=== PATIENT | female | born 1995 | race Hispanic/Latino ===

== ENCOUNTER 2020-04-12 16:28 | Observation (INO) | payer OTHER, SELFPAY ==
--- NOTE | ~2020-04-12 | CT_ITS ---
EXAMINATION: CT abdomen pelvis w con DATE: 04/12/2020 17:43 INDICATION: Right lower quadrant pain. TECHNIQUE: Computed tomography (CT) of the abdomen and pelvis was performed with 100 cc Omnipaque 350 intravenous contrast. The dose-length product was 1049.62 mGy-cm. Automated exposure control and ite rative reconstruction technique were employed. COMPARISON: CT dated 07/06/2016 FINDINGS: Lung bases are unremarkable. Heart size normal. No significant pleural or pericardial effus ion. No significant vascular abnormality. No lymphadenopathy. There is loculated fluid in the right p ariel superior to the uterus measuring 8 x 5.2 cm. Cannot exclude ovarian origin. The appendix is thi ckened with enhancement and mild periappendiceal infiltration, consistent with acute uncomplicated ap pendicitis. IMPRESSION: 1. Acute uncomplicated appendicitis. 2: Simple cyst of the pelvis superior to the uterus measuring 8 x 5.2 cm greatest sagittal dimension. Differential diagnosis functional ovarian cyst, peritoneal inclusion cyst, cystadenoma/cystadenocarc inoma. Reviewed, dictated and finalized at location A. IMPRESSION: 1. Acute uncomplicated appendicitis. 2: Simple cyst of the pelvis superior to the uterus measuring 8 x 5.[address] sagittal dimension. Differential diagnosis functional ovarian cyst, peritone al inclusion cyst, cystadenoma/cystadenocarcinoma.
[2020-04-12 16:30] VITALS: BP 173/109; PULSE 98; RESP 17; TEMP 37.3; O2SAT 98
[2020-04-12 16:58] LABS: Basophils Percent Auto 0.3 % (0.2-1.2); Eosinophils Absolute Auto 0.1 K/mm3 (0-0.3); Eosinophils Percent Auto 1.3 % (0-4.4); Hematocrit 41.8 % (37.0-47.0); Hemoglobin 14.6 g/dL (12.0-15.0); Immature Granulocyte Absolute 0.04 K/mm3 (0.00-0.031); Immature Granulocyte Percent A 0.4 % (0-0.5); Lymphocytes Absolute Auto 3.15 K/mm3 (0.9-3.2); Lymphocytes Percent Auto 33.8 % (18.3-44.2); Mean Corpuscular HGB Conc 34.9 g/dl (32-36); Mean Corpuscular Hemoglobin 31.6 pg (26-34); Mean Corpuscular Volume 90.5 fl (80-100); Mean Platelet Volume 9.5 fl (7.4-10.4); Monocytes Absolute Auto 0.4 K/mm3 (0.1-0.6); Monocytes Percent Auto 4.4 % (2.6-8.5); Neutrophils Absolute Auto 5.6 K/mm3 (1.3-6.7); Neutrophils Percent Auto 59.8 % (45.5-73.1); Platelet Count Result 316 k/mm3 (150-375); Red Blood Count 4.62 M/mm3 (4.2-5.4); Red Cell Distribution Width 12.4 % (11.5-14.5); White Blood Count 9.3 K/mm3 (4.5-10.0)
[2020-04-12 17:01] LABS: Add Urine Microscopic? YES; Appearance Urine Clear (Clear); Bilirubin Urine Negative (Negative); Blood Urine Negative (Negative); Color Urine Yellow (Yellow); Glucose Urine UA Negative (Negative); Ketones Urine Negative (Negative); Leukocyte Esterase Ur Negative LEU/UL (Negative); Mucus Urine Few /lpf; Nitrate Urine Negative (Negative); Protein Urine Negative (Negative); RBC Urine 0-2 /hpf (0-2); Specific Grav Ur 1.024 (1.001-1.035); Squamous Epithelial Cell Urine Few /hpf (Few); WBC Urine 0-3 /hpf
--- NOTE | 2020-04-12 17:06 | ED.ABDPAIN ---
HPI - Abdominal Pain General Chief Complaint: Abdominal Pain Stated Complaint: right sided abd pain Time Seen by Provider: 04/12/20 16:38 History of Present Illness HPI narrative: Patient is a 24-year-old female who presents ER with right lower quadrant pain x2 days. It sharp and worse with turning to her left side. No urinary frequency/dysuria/hematuria. Denies any diarrhea/nausea/vomiting. Patient reports that she was COVID swabbed yesterday at [facility] due to the fact that she is exposed to a client who had COVID 10 days ago. Patient is exhibited no symptoms. Related Data Home Medications Medication Instructions Recorded Confirmed No Home Medications 04/12/20 04/12/20 Allergies Allergy/AdvReac Type Severity Reaction Status Date / Time Penicillins Allergy Unknown RASH ON Verified 04/12/20 16:28 FOREHEAD, WELPS UNDER EYES Review of Systems Review of Systems: All systems reviewed & are unremarkable except as noted in HPI and below Constitutional: Constitutional: Denies chills, Denies fever(s) and Denies weakness ENT: Denies nasal congestion and Denies sore throat Respiratory: Respiratory: Denies cough, Denies dyspnea and Denies wheezing Gastrointestinal: Gastrointestinal: Reports abdominal pain, Denies diarrhea, Denies nausea and Denies vomiting Genitourinary: Genitourinary: Reports abnormal vaginal bleeding (5-month long period), Denies hematuria, Denies dysuria and Denies urinary incontinence PMFSH Past Medical History Medical History (Updated 04/12/20 @ 19:23 by Jayden Chaudhari MD) Polycystic ovarian syndrome Surgical History Surgical History (Updated 04/12/20 @ 19:21 by Jayden Chaudhari MD) No history of previous surgery Social History Social History (Updated 04/12/20 @ 19:22 by Jayden Chaudhari MD) Smoking status: Never smoker Gender identity (if verbalized by the patient): Female Exam Narrative: Exam Narrative: GENERAL: Well-appearing, well-nourished, and in no acute distress. HEAD: Normocephalic, atraumatic. ENT: Mucous membranes moist. CHEST: Clear to auscultation. No respiratory distress. HEART: Regular rate and rhythm. Normal peripheral pulses. ABDOMEN: Soft, tender palpation right lower quadrant McBurney's point, nondistended, normal active bowel sounds. EXTREMITIES: Normal range of motion. No edema. SKIN: Warm, dry, no rash. NEURO: Alert and oriented x3. Course Course Emergency Course: Patient informed of results. Will receive Invanz for antibiotic coverage. Dr. Aragon will admit the patient. Dr. Reyes has been consulted in regards to the large cyst within the pelvic cavity. Furthermore the medical team is also been consulted for patient's COVID status and her hypertension. Vital Signs Vital signs: Vital Signs Temperature 99.2 F 04/12/20 16:30 Pulse Rate 98 04/12/20 16:30 Respiratory Rate 17 04/12/20 16:30 Blood Pressure 173/109 H 04/12/20 16:30 Pulse Oximetry 98 04/12/20 16:30 Temperature 99.2 F 04/12/20 16:30 Pulse Rate 98 04/12/20 16:30 Respiratory Rate 17 04/12/20 16:30 Blood Pressure 173/109 H 04/12/20 16:30 Pulse Oximetry 98 04/12/20 16:30 MDM - Abdominal Pain Lab Data Result diagrams: 04/12/20 16:47 04/12/20 16:47 Labs: Lab Results 04/12/20 04/12/20 04/12/20 Range/Units 16:47 16:47 16:47 WBC 9.3 (4.5-10.0) K/mm3 RBC 4.62 (4.2-5.4) M/mm3 Hgb 14.6 (12.0-15.0) g/dL Hct 41.8 (37.0-47.0) % MCV 90.5 (80-100) fl MCH 31.6 (26-34) pg MCHC 34.9 (32-36) g/dl RDW 12.4 (11.5-14.5) % Plt Count 316 (150-375) k/mm3 MPV 9.5 (7.4-10.4) fl Immature Gran % (Auto) 0.4 (0-0.5) % Neut % (Auto) 59.8 (45.5-73.1) % Lymph % (Auto) 33.8 (18.3-44.2) % Mineral % (Auto) 4.4 (2.6-8.5) % Eos % (Auto) 1.3 (0-4.4) % Baso % (Auto) 0.3 (0.2-1.2) % Lymph # (Auto) 3.15 (0.9-3.2) K/mm3 Mineral # (Auto) 0.4 (0.1-0
[2020-04-12 17:07] LABS: Alanine Aminotransferase 35 U/L (4-35); Albumin Level 4.6 g/dL (3.5-5.1); Alkaline Phosphatase 117 U/L (38-126); Aspartate Amino Transferase 37 U/L (14-36); Bilirubin,Total 0.4 mg/dL (0.2-1.3); Blood Urea Nitrogen 10 mg/dL (7-17); Calcium 9.1 mg/dL (8.4-10.2); Carbon Dioxide 26 mmol/L (22-30); Chloride 104 mmol/L (98-107); Estimated CRCL calculation 151 ml/min; Estimated Glomerular Filt Rate > 60; Glucose 111 mg/dL (65-105); Lipase 49 U/L (23-300); Potassium 3.7 mmol/L (3.4-5.0); Sodium 139 mmol/L (137-145)
[2020-04-12] MEDS: MORPHINE SULFATE 4 MG/ML INJ IV PUSH ×2 (17:21→20:38)
[2020-04-12] MEDS: SODIUM CHLORIDE 0.9% IV 1,000 ML 999 ML IV CONT (17:21)
[2020-04-12] MEDS: ONDANSETRON INJ 4 MG/2 ML VIAL IV PUSH (17:22)
[2020-04-12] MEDS: ERTAPENEM 1 GM/NS 50 ML 1 GM/50 ML BAG IVPB (18:46)
[2020-04-12 19:37] VITALS: BP 119/90; PULSE 93; RESP 19; TEMP 36.8; O2SAT 100
[2020-04-12 19:52] VITALS: BP 124/87; PULSE 88; RESP 19; TEMP 36.3; O2SAT 100
[2020-04-12 20:07] VITALS: BP 139/82; PULSE 91; RESP 18; TEMP 37.7; O2SAT 94; BMI 38.8
--- NOTE | 2020-04-12 20:07 | ADMGEN ---
This patient, Verna Perrin, was admitted to [facility] Surg Room 328-01. Patient/family oriented to hospital policies and general routines including ID bracelet, bed and alarms, visiting hours, pain management, procedures, bathroom and other care routines, personal items, smoking policy, room service/diet, and visiting hours. Valuables list has been completed. Information on how to activate the Rapid Response Team has been discussed. Patient/Family are encouraged to report perceived risks to care and to ask questions if they do not understand what they are told or what they should do.
[2020-04-12] MEDS: KCL 20 MEQ/D5/0.45% SOD CHL 1,000 ML 100 ML IV CONT (20:36)
[2020-04-13] VITALS (15 sets, daily range): BP systolic 113–138; BP diastolic 66–91; PULSE 72–107; RESP 12–20; TEMP 36.6–37.8; O2SAT 93–100
--- NOTE | 2020-04-13 05:06 | PM.IMCN ---
Assessment and Plan Assessment and plan (1) Acute appendicitis: Code(s): K35.80 - Unspecified acute appendicitis Status: Acute Assessment and Plan: Continue empiric antibiotic therapy. Management per primary service. (2) Person under investigation for COVID-19: Code(s): Z20.828 - Contact with and (suspected) exposure to other viral communicable diseases Status: Acute Assessment and Plan: Patient is not having active symptoms of COVID-19. Repeat COVID-19 testing is pending to facilitate quicker return of result. If the patient's coated testing came back positive it would not necessitate change in medications or treatment plan. The treatment for COVID-19 is supportive care when the patient is otherwise asymptomatic. (3) Ovarian cyst: Code(s): N83.209 - Unspecified ovarian cyst, unspecified side Status: Acute Assessment and Plan: Management per Dr. Reyes (4) Elevated blood pressure reading without diagnosis of hypertension: Code(s): R03.0 - Elevated blood-pressure reading, without diagnosis of hypertension Status: Acute Assessment and Plan: The patient admits to occasional elevated blood pressure in a medical setting. Besides her initial value that was elevated her blood pressures have otherwise been stable and require no further medical intervention (5) Obesity (BMI 30-39.9): Code(s): E66.9 - Obesity, unspecified Status: Acute Assessment and Plan: Given the patient's report of snoring and episodes are suspicious for apnea patient been have from outpatient sleep study. Patient is medically stable at this time. Hospitalist service will sign off. Please feel free to contact hospitalist office at any time with questions. HPI Data of Consult Consult date: 04/13/20 Requesting Physician: Maverick Aragon MD Primary Care Provider: BAR PILOT PHYSICIAN Consult Narrative Narrative: Date and time of patient contact: 04/13/2020 at 4:10 a.m. Verna Perrin is a 24 year old female with a past medical history of PCOS and obesity who presented to the ER with right lower quadrant abdominal pain and low-grade fevers for 2 days. The patient reports that she had the right lower quadrant pain that felt as if it was a deep bruise. The pain is been as bad as an 8/10 in intensity with position changes or palpation of the abdomen. It has been accompanied by some nausea and dry heaves on the evening of the . She also had 4 darker colored stools on the . Her temperature was a 100? on the . She reports that she has some mushy stools all the time since she had her gallbladder out several years ago but she usually does not have 4 in 1 day. She denies any dysuria or changes in urinary frequency. She has not had any cough or congestion. 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 She went to [facility] and had COVID-19 test performed on the . They told her would be 2-3 days before she got result. She has not been having any upper respiratory symptoms, loss of taste, loss of smell, headaches, palpitations or lower extremity swelling. She does have chronic Hurst to some associated with her PCOS. She does snore and occasionally will wake herself up when she pauses in breathing. She denies any excessive daytime fatigue or somnolence. When she arrived to the ER the patient's blood pressures were elevated to 173/109. She reports that she does tend to get a little bit a high blood pressure when she has to come to the ER. By the time she arrived on the medical floor/received pain medication her blood pressure was down to 119/90. The patient had a CT scan performed in the ER demonstrated acute appendicitis and a large to the uterus measuring 8 x 5.2 cm. The patient was admitted to the general surgical service with OB Gyne consult. The general surgery service wanted us
[2020-04-13] MEDS: KCL 20 MEQ/D5/0.45% SOD CHL 1,000 ML 100 ML IV CONT ×3 (05:25→20:03)
[2020-04-13] MEDS: ONDANSETRON INJ 4 MG/2 ML VIAL IV PUSH ×2 (05:30→20:18)
[2020-04-13] MEDS: MORPHINE SULFATE 2 MG/ML INJ IV PUSH (05:30)
[2020-04-13 06:22] LABS: Basophils Percent Auto 0.2 % (0.2-1.2); Eosinophils Absolute Auto 0.1 K/mm3 (0-0.3); Eosinophils Percent Auto 0.9 % (0-4.4); Hematocrit 38.1 % (37.0-47.0); Immature Granulocyte Absolute 0.02 K/mm3 (0.00-0.031); Immature Granulocyte Percent A 0.3 % (0-0.5); Lymphocytes Absolute Auto 1.97 K/mm3 (0.9-3.2); Lymphocytes Percent Auto 29.9 % (18.3-44.2); Mean Corpuscular HGB Conc 34.1 g/dl (32-36); Mean Corpuscular Volume 90.7 fl (80-100); Mean Platelet Volume 9.2 fl (7.4-10.4); Monocytes Absolute Auto 0.2 K/mm3 (0.1-0.6); Monocytes Percent Auto 3.6 % (2.6-8.5); Neutrophils Absolute Auto 4.3 K/mm3 (1.3-6.7); Neutrophils Percent Auto 65.1 % (45.5-73.1); Platelet Count Result 261 k/mm3 (150-375); Red Cell Distribution Width 12.4 % (11.5-14.5); White Blood Count 6.6 K/mm3 (4.5-10.0)
[2020-04-13 06:45] LABS: Blood Urea Nitrogen 6 mg/dL (7-17); Calcium 8.4 mg/dL (8.4-10.2); Carbon Dioxide 26 mmol/L (22-30); Chloride 104 mmol/L (98-107); Estimated CRCL calculation 158 ml/min; Estimated Glomerular Filt Rate > 60; Glucose 163 mg/dL (65-105); Magnesium 2.1 mg/dL (1.6-2.3); Potassium 4.2 mmol/L (3.4-5.0); Sodium 137 mmol/L (137-145)
--- NOTE | 2020-04-13 07:23 | WPDCN ---
Assessment and Plan Assessment and plan (1) Ovarian cyst: Code(s): N83.209 - Unspecified ovarian cyst, unspecified side Status: Acute Assessment and Plan: CT scan shows simple pelvic cyst adjacent to the uterus/ovary cyst measures approximately 8cm pt with h/o PCOS images suggestive of simple ovarian cyst vs inclusion cyst given size and potential risk of torsion if associated with the ovary, would recommend surgical exploration imaging also suggests acute appendicitis patient admitted under general surgery, will plan for co-management at the time of operation awaiting COVID-19 test results for further surgery planning (2) Person under investigation for COVID-19: Code(s): Z20.828 - Contact with and (suspected) exposure to other viral communicable diseases Status: Acute Assessment and Plan: COVID-19 tests pending (3) Acute appendicitis: Code(s): K35.80 - Unspecified acute appendicitis Status: Acute Assessment and Plan: Management per Dr. Aragon (4) Obesity (BMI 30-39.9): Code(s): E66.9 - Obesity, unspecified Status: Acute HPI Data of Consult Date/Time: 04/13/20 07:23 Requesting Physician: Maverick Aragon MD Primary Care Provider: SERVICE RESTORER EMERGENCY PHYSICIAN Consult Narrative Narrative: Verna Perrin is a 24 year old female who presented to the ED with several days of RLQ abdominal pain. She states the pain is constant and sharp. She states the pain is aggravated with movement and improves with rest. She denies any radiation of the pain. She denies any dysuria. She reports a low grade fever at home. Her initial concern for her abdominal pain came after a possible COVID-19 exposure at work. Pt states a co-worker tested positive and they visited the same home through work. She had read online that abdominal pain could be a symptom. She denies any SOB or CP. Imaging in the ED showed a cystic structure adjacent to the uterus and ovary measuring approximately 8cm. Pt has a history of PCOS. She reports that she has had daily vaginal spotting for the past 5 months. She states the bleeding is less than a normal menses. She denies passing any large clots, dizziness, fatigue, syncope, palpitations. She denies any dysmenorrhea. Pt states she was previously on hormonal OCPs to manage her PCOS. She had to have a laparoscopic gladis and was told it was due to her OCP use so she has not continued use. Pt does not currently have any health insurance so has been lost to follow up with her associate professor of communication. Review of Systems Review of Systems: All systems reviewed & are unremarkable except as noted in HPI and below PMFSH Past Medical History Medical History Obesity (BMI 30-39.9) Polycystic ovarian syndrome Surgical History Surgical History (Updated 04/13/20 @ 05:35 by Queenie Adams DO) History of laparoscopic cholecystectomy March 2016 Family History Family History Mother Kidney stones Social History Social History (Updated 04/13/20 @ 05:31 by Queenie Adams DO) Social History: Primary care physician: None Smoking status: Never smoker Alcohol intake: current Drinks per week: 1 Alcohol use details: The patient rarely drinks alcohol once every 3 or 4 months. Substance use: never Additional living arrangements comments: The patient lives with her fiance. She does not have any children. Occupation/Education: occupation Additional occupation/education comments: She works as a home health aide. Gender identity (if verbalized by the patient): Female Spiritual care concerns: No Meds Home Medications and Allergies Home Medications Medication Instructions Recorded Confirmed Type No Home Medications 04/12/20 04/12/20 History Allergies Allergy/AdvReac Type Severity Reaction Status Date / Time Penicillins All
--- NOTE | 2020-04-13 08:24 | PM.IMHP ---
H&P: HPI History of Present Illness Chief complaint: Acute uncomplicated appendicitis Narrative: Verna Perrin is a 24 year old [place] female with a past medical history of PCOS and obesity who presented to the ER with right lower quadrant abdominal pain and low-grade fevers for 2 days. The patient reports that she had the right lower quadrant pain that felt as if it was a deep bruise.This she 1st started noticing 2 days ago. She also noticed having less of an appetite both yesterday and the day before. The pain is been as bad as an 8/10 in intensity with position changes or palpation of the abdomen on the date of admission. It has been accompanied by some nausea and dry heaves on the evening of the . She also had 4 darker colored loose stools on the . Her temperature was a 100? F on the . She reports that she has some mushy stools all the time since she had her gallbladder out several years ago but she usually does not have 4 in 1 day. on average typically has 1 or 2 bowel movements per day. She denies any dysuria or changes in urinary frequency. She has not had any cough or congestion. 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 She went to [facility] and had COVID-19 test performed on the . They told her it would be 2-3 days before she got results. She has not been having any upper respiratory symptoms, loss of taste, loss of smell, headaches, palpitations or lower extremity swelling. She does have chronic Hirsutism associated with her PCOS. She does snore and occasionally will wake herself up when she pauses in breathing. She has not yet been tested for sleep apnea. She denies any excessive daytime fatigue or somnolence. When she arrived to the ER the patient's blood pressures were elevated to 173/109. She reports that she does tend to get a little bit a high blood pressure when she has to come to the ER. By the time she arrived on the medical floor/received pain medication her blood pressure was down to 119/90. The patient had a CT scan performed in the ER demonstrated acute appendicitis and a large to the uterus measuring 8 x 5.2 cm. The patient was admitted to the general surgical service with OB Gyne consult. Given that we are waiting for the patient's outpatient COVID-19 testing and this would cause delay the patient's care, a repeat COVID-19 test has been ordered for this a.m. Review of Systems Constitutional: Constitutional: Reports as per HPI and Denies headache(s) Eyes: Eyes: Denies loss of vision and Denies eye pain ENT: Reports Normal hearing present, Denies change in voice, Denies dizziness and Denies headache(s) Cardiovascular: Cardiovascular: Denies chest pain and Denies dyspnea Respiratory: Respiratory: Denies dyspnea and Denies wheezing Gastrointestinal: Gastrointestinal: Reports abdominal pain and Reports diarrhea ( Two days ago the patient had loose stools (4 in a day)) Genitourinary: Genitourinary: Reports no additional female genitourinary complaints and Reports abnormal menses ( Patient told while in that she was spotting between periods.) Comments: Known PCOS. Musculoskeletal: Musculoskeletal: Denies back pain and Denies arthralgias Neurologic: Reports Normal hearing present, Denies dizziness, Denies headache(s), Denies loss of vision and Denies memory loss Psychiatric: Psychiatric: Denies memory loss and Denies panic attacks Endocrine: Endocrine: Reports no additional endocrine complaints Hematologic/Lymphatic: Hematologic/Lymphatic: Reports no additional hematologic/lymphatic complaints Allergic/Immunologic: Allergic/Immunologic: Denies wheezing PMFSH Past Medical History Medical History Hirsutism (Unknown) Obesity (BMI 30-39.9) (Unknown) Polycystic ovarian syndrome Surgical History Surgical History (Reviewed 04/13/20 @ 08:44 by Maverick Chacon
[2020-04-13 10:43] LABS: SARS-CoV-2 RNA PCR Negative
--- NOTE | 2020-04-13 14:45 | PC.NURSE ---
To OR at 1445
[2020-04-13] MEDS: LACTATED RINGERS 1,000 ML 30 ML IV CONT ×2 (15:00→17:50)
--- NOTE | 2020-04-13 15:36 | WPDANESEPPF ---
Anes - Initial Pre Proc Eval Procedure: Operation Date: 04/13/20 16:00 Proposed Procedures p Laparoscopic Appendectomy - Maverick Aragon MD s Diagnostic Laparoscopy, Possible Right Ovarian Cystectomy - Cuauhtemoc Reyes MD Date/Time: 04/13/20 15:36 Surgeon: Maverick Aragon MD Pre Op Diagnosis: Acute uncomplicated appendicitis Patient Data Age: 24 Gender: F Height: 5 ft 7 in Weight: 112.6 kg Last Vital Signs Temp 37.8 C H 04/13/20 15:00 Pulse 89 04/13/20 15:00 Resp 16 04/13/20 15:00 BP 137/77 04/13/20 15:00 Pulse Ox 99 04/13/20 15:00 Allergies Allergy/AdvReac Type Severity Reaction Status Date / Time Penicillins Allergy Unknown RASH ON Verified 04/12/20 16:28 FOREHEAD, WELPS UNDER EYES Home Medications Medication Instructions Recorded Confirmed Type No Home Medications 04/12/20 04/12/20 History Laboratory Tests 04/12/20 04/12/20 04/12/20 16:47 16:47 16:47 WBC 9.3 K/mm3 K/mm3 (4.5-10.0) RBC 4.62 M/mm3 M/mm3 (4.2-5.4) Hgb 14.6 g/dL g/dL (12.0-15.0) Hct 41.8 % % (37.0-47.0) MCV 90.5 fl fl (80-100) MCH 31.6 pg pg (26-34) MCHC 34.9 g/dl g/dl (32-36) RDW 12.4 % % (11.5-14.5) Plt Count 316 k/mm3 k/mm3 (150-375) MPV 9.5 fl fl (7.4-10.4) Immature Gran % (Auto) 0.4 % % (0-0.5) Neut % (Auto) 59.8 % % (45.5-73.1) Lymph % (Auto) 33.8 % % (18.3-44.2) Webb % (Auto) 4.4 % % (2.6-8.5) Eos % (Auto) 1.3 % % (0-4.4) Baso % (Auto) 0.3 % % (0.2-1.2) Lymph # (Auto) 3.15 K/mm3 K/mm3 (0.9-3.2) Webb # (Auto) 0.4 K/mm3 K/mm3 (0.1-0.6) Eos # (Auto) 0.1 K/mm3 K/mm3 (0-0.3) Baso # (Auto) 0.0 K/mm3 K/mm3 (0.0-0.1) Abs Immat Gran (auto) 0.04 K/mm3 H K/mm3 (0.00-0.031) Absolute Neuts (auto) 5.6 K/mm3 K/mm3 (1.3-6.7) Absolute Nucleated RBC 0.0 K/mm3 K/mm3 (0.0-0.012) Nucleated RBC % 0.0 % % (0.0-0.2) Sodium 139 mmol/L mmol/L (137-145) Potassium 3.7 mmol/L mmol/L (3.4-5.0) Chloride 104 mmol/L mmol/L (98-107) Carbon Dioxide 26 mmol/L mmol/L (22-30) BUN 10 mg/dL mg/dL (7-17) Creatinine 0.60 mg/dL L mg/dL (0.7-1.0) Estim Creat Clear Calc 151 ml/min ml/min Estimated GFR > 60 (59 - ) Glucose 111 mg/dL H mg/dL (65-105) Calcium 9.1 mg/dL mg/dL (8.4-10.2) Magnesium Total Bilirubin 0.4 mg/dL mg/dL (0.2-1.3) AST 37 U/L H U/L (14-36) ALT 35 U/L U/L (4-35) Alkaline Phosphatase 117 U/L U/L (38-126) Total Protein 9.0 g/dL H g/dL (6.3-8.2) Albumin 4.6 g/dL g/dL (3.5-5.1) Lipase 49 U/L U/L (23-300) CA 125 Antigen Urine Color Yellow (Yellow) Urine Appearance Clear (Clear) Urine pH 6.0 (5.0-9.0) Ur Specific [place] 1.024 (1.001-1.035) Urine Protein Negative mg/dL mg/dL (Negative) Urine Glucose (UA) Negative mg/dL mg/dL (Negative) Urine Ketones Negative mg/dL mg/dL (Negative) Ur Blood (Man) Negative (Negative) Urine Nitrate Negative (Negative) Urine Bilirubin Negative (Negative) Urine Urobilinogen 2.0 mg/dL H mg/dL (<2.0) Leukocyte Esterase Rfl Negative ANA/UL ANA/UL (Negative) Urine RBC 0-2 /hpf /hpf (0-2) Urine WBC 0-3 /hpf /hpf Ur Squamous Epith Cells Few /hpf /hpf (Few) Urine Mucus Few /lpf H /lpf SARS-CoV-2 RNA (RT-PCR) 04/13/20 04/13/20 04/13/20 02:00 06:09 06:09 WBC 6.6 K/mm3 K/mm3 (4.5-10.0) RBC 4.20 M/mm3 M/mm3 (4.2-5.4) Hgb 13.0 g/dL g/dL (12.0-15.
[2020-04-13] MEDS: CLINDAMYCIN 900 MG/NS 50 ML 900 MG/50 ML PIGGYBACK 50 MG IVPB (16:01)
[2020-04-13] MEDS: BUPIVACAINE/EPINEPHRINE 0.5% 30 ML VIAL INFILTRATE (16:14)
--- NOTE | 2020-04-13 17:43 | PM.PROC ---
Procedure Note - Detailed Date of procedure: 04/14/20 Pre-op diagnosis: Acute uncomplicated appendicitis 1. Acute uncomplicated appendicitis 2. Left ovary in cyst complex, (suspected benign) Post-op diagnosis: same Procedure performed: 1. Laparoscopic appendectomy (Dr. Aragon) 2. Diagnostic laparoscopy, removal of a left ovarian cyst. (Dr. Reyes) Description of procedure: The patient was seen again in her hospital room and I spoke to her briefly in the OR prior to her intubation.. The risks, benefits, complications, treatment options, and expected outcomes were discussed with the patient and/or family. The possibilities of reaction to medication, pulmonary aspiration, perforation of viscus, bleeding, recurrent infection, finding a normal appendix, the need for additional procedures, failure to diagnose a condition, and creating a complication requiring transfusion or operation were discussed. There was concurrence with the proposed plan and informed consent was obtained. The site of surgery was properly noted/marked. The patient was taken to Operating Room, and a time out was preformed which identified this as the proper patient, and the procedure verified as laparoscopic appendectomy, possible open. The patient was placed in the supine position and general anesthesia was induced, along with placement of orogastric tube, SCD hose, and a Morales catheter. The abdomen was prepped and draped in a sterile fashion. This procedure was done as a co-surgeon with Dr. Noble Rodriguez. Dr. elizabeth perform the entry using a Hillman cannula open technique in the supraumbilical area prior to and at my arrival at the OR. Because the patient had had previous surgeries the Hillman cannula technique was utilized. The pneumoperitoneum was then established to steady pressure of 14 mm Hg. A 12 mm laparoscopic port was placed through a transverse suprapubic incision. An additional 5 mm cannula was then placed in the lateral left lower quadrant of the abdomen at a level half way between the umbilicus and pubic symphysis under direct vision. A careful evaluation of the entire abdomen was carried out. I then assisted as Dr. santiago and performed the left ovarian cystectomy since we noticed that the large 8 cm cyst was coming off the medial side of the left ovary rather than off the right ovary. We initially attempted to see the appendix before we started doing this work. It appeared to be retrocecal. After Dr. Reyes had removed the remaining portions of the cyst and aspirated it within an endobag, I started my portion of procedure. Patient was in [facility] an a uterine manipulator was present. Her cecum was somewhat high lying and the appendix was retrocecal. The patient was placed in Trendelenburg and left lateral decubitus position. The small intestines were retracted in the cephalad and left lateral direction away from the pelvis and right lower quadrant. The patient was found to have an enlarged and inflamed appendix that was extending a curled position densely adhered to the back of the cecum.. There was no evidence of perforation. . After some dissection using the LigaSure to free up the cecum from the lateral attachments to the abdominal wall I was able to use the LigaSure to free the inferior lateral edges of the appendix. I also was able to use this bluntly to get around the appendix at its base. At this point I decided it would be best to divide the appendix at the base and then divided the remaining mesentery and mesoappendix with the LigaSure. Therefore, I was able to proceed immediately to stapling off the appendix at it's junction with the cecum. The appendix was then divided at its base using a 45 mm stapler with a 3.5 mm bowel wall load. Minimal appendiceal stump was left in place. There was no evidence of bleeding, leakage, or complication after division of the appendix at its junction with the cecum. Following this a LigaSure was used to march down the remaining
--- NOTE | 2020-04-13 18:28 | PM.PROC ---
Procedure Note - Detailed Date of procedure: 04/13/20 Pre-op diagnosis: Acute uncomplicated appendicitis Ovarian cyst Post-op diagnosis: same Procedure performed: Diagnostic laparoscopy left ovarian cystectomy Description of procedure: The patient was taken to the operating room where general endotracheal anesthesia was undertaken and found to be adequate. She was then prepped and draped in the dorsal lithotomy position and placed in adjustable stirrups. A pre-operative team brief and a time out were completed. A catheter was placed to drain the bladder. Retractors were placed placed in the vagina and the cervix was identified. An acorn uterine manipulator was placed. Attention was then turned to the abdomen. After using local anesthetic, a 12 mm incision was made at the umbilicus. The incision was carried down to the underlying fascia. The fascia and peritoneum were incised vertically to enter the peritoneal cavity. A 10 mm trocar was placed through the umbilical incision. Intraperitoneal placement was confirmed under direct visualization with the laparoscopic camera. The abdomen was insufflated to a pressure of 15 mm Hg. The pelvis was inspected. A large simple appearing cyst was noted to originate from the Left ovary and lay posterior to the uterus. The cyst was noted to be pedunculated from the ovary. A second 5 mm laparoscopic port was placed at the patients left lower quadrant. A 12 mm suprapubic port was also placed. A laparocopic Ligasure device was then used to ligate the cyst at its stalk from the left ovary. After the cyst was freed from its ovarian origin, a laparoscopic needle was introduced under direct visualization and the cyst fluid was drained. The fluid was noted to be clear. After deflating the cyst, a laparoscopic pouch was introduced through the suprapubic port site. The cyst was then placed in the pouch and removed from the abdomen through the suprapubic port. The surgical field was inspected and alll surgical beds were noted to be hemostatic. At this time, attention was turned to the appendectomy portion of the case and the remainder of the case was completed by Dr. Aragon. Please see his dictation for the remainder of the case. After all abdominal incision were closed, the uterine manipulator was removed from the uterus. Hemostasis of the cervix was noted. The urinary catheter was removed. The patient was taken out of dorsal lithotomy position. Anesthesia was reversed. The patient was taken to the PACU. Anesthesia: GETA Surgeon: Cuauhtemoc Reyes MD Estimated blood loss (mL): 20 Drains: No Packing: No Pathology: yes (left ovarian cyst) Complications: No immediate complications Condition: stable Disposition: PACU
--- NOTE | 2020-04-13 19:52 | PC.NURSE ---
Returned from OR per [bed.]
--- NOTE | 2020-04-13 19:54 | SUR.PHASEI ---
1900; PT SLEEPING. RESP EVEN UNLABORED.
--- NOTE | 2020-04-13 19:55 | SUR.PHASEI ---
1940; PT AROUSES TO VERBAL STIMULI. TEARFUL WHEN AWAKE. PT COMFORTED. STATES PAIN MODERATE.
[2020-04-13] MEDS: SENNA/DOCUSATE SODIUM TABLET 2 TAB PO (21:33)
[2020-04-14 02:00] VITALS: BP 114/70; PULSE 65; RESP 18; TEMP 36.4; O2SAT 100
[2020-04-14] MEDS: KCL 20 MEQ/D5/0.45% SOD CHL 1,000 ML 100 ML IV CONT (05:05)
[2020-04-14 06:00] VITALS: BP 118/62; PULSE 64; RESP 16; TEMP 36.1; O2SAT 95
[2020-04-14 06:30] LABS: Hemoglobin 12.7 g/dL (12.0-15.0); Mean Corpuscular HGB Conc 34.3 g/dl (32-36); Mean Corpuscular Hemoglobin 31.6 pg (26-34); Mean Platelet Volume 9.6 fl (7.4-10.4); Platelet Count Result 289 k/mm3 (150-375); Red Blood Count 4.02 M/mm3 (4.2-5.4); Red Cell Distribution Width 12.2 % (11.5-14.5); White Blood Count 10.2 K/mm3 (4.5-10.0)
[2020-04-14 06:42] LABS: Blood Urea Nitrogen 5 mg/dL (7-17); Calcium 8.8 mg/dL (8.4-10.2); Carbon Dioxide 26 mmol/L (22-30); Chloride 105 mmol/L (98-107); Estimated CRCL calculation 158 ml/min; Estimated Glomerular Filt Rate > 60; Glucose 164 mg/dL (65-105); Potassium 4.2 mmol/L (3.4-5.0); Sodium 138 mmol/L (137-145)
--- NOTE | 2020-04-14 06:45 | PM.GYNPNOP ---
CREATIVE SERVICES WRITER - A/P Postoperative Procedures: Procedures Operation Date: 04/13/20 16:00 Actual Procedures Side Surgeon p Laparoscopic Appendectomy Bilateral Maverick Aragon MD s Diagnostic Laparoscopy, Left Ovarian Cystectomy Left Cuauhtemoc Reyes MD Postoperative day: 1 Postoperative status: doing well Postoperative plan: routine post-op care, ambulate and discharge Time Spent With Patient Time: Total time spent is greater than 50% in coordination of care (as documented) at patient's floor/unit and/or counseling patient: Time with patient: less than 15 minutes CREATIVE SERVICES WRITER- PN:Subj Post-Op Subjective Date/time seen: 04/14/20 06:45 Interval history: Patient doing well this AM. She states her pain is well controlled. She denies N/V. She is tolerating PO. She is ambulating. She is voiding spontaneously. She denies any fevers or chills. She reports flatus. Subjective: patient has no complaints, pain is well controlled and patient is tolerating oral intake Review of Systems Constitutional: Constitutional: Denies fever(s) Cardiovascular: Cardiovascular: Denies chest pain, Denies lightheadedness, Denies palpitations and Denies dyspnea Respiratory: Respiratory: Denies cough and Denies dyspnea Gastrointestinal: Gastrointestinal: Reports abdominal pain, Denies nausea and Denies vomiting Genitourinary: Genitourinary: Denies dysuria Endocrine: Endocrine: Denies palpitations Exam Const: General: comfortable and no acute distress Orientation/consciousness: oriented to person, oriented to place and oriented to time Resp: Effort & Inspection: normal respiratory effort Auscultation: clear to auscultation bilaterally Cardio: Rate: regular rate Rhythm: regular rhythm GI: Inspection: non-distended GI Palp: Yes Soft to palpation, Yes Tenderness to palpation present (GI) (mild tenderness to deep palpation) and No Guarding due to palpation present (GI) Auscultation: normal bowel sounds Other: Incisions C/D/I. no erythema or induration Urinary Catheter: Urinary Catheter: patent and draining and urine clear Neuro: General: oriented to person, oriented to place and oriented to time Extrem: General: normal to inspection and no edema Psych: Mental Status: mental status grossly normal Affect: normal affect CREATIVE SERVICES WRITER - PN: Obj Data Vital Signs Vital Signs: Vital Signs - 24 hr 04/13/20 10:00 04/13/20 14:00 04/13/20 15:00 Temperature 36.6 C 36.7 C 37.8 C H Pulse Rate 81 83 89 Respiratory Rate 20 20 16 Blood Pressure 137/85 138/87 137/77 Pulse Oximetry 100 100 99 04/13/20 17:50 04/13/20 18:05 04/13/20 18:20 Temperature 36.9 C Pulse Rate 72 72 76 Respiratory Rate 12 14 16 Blood Pressure 120/68 121/66 125/72 Pulse Oximetry 100 100 100 04/13/20 18:35 04/13/20 18:50 04/13/20 19:05 Temperature 36.8 C 36.9 C 36.9 C Pulse Rate 87 84 90 Respiratory Rate 18 14 14 Blood Pressure 126/74 129/72 117/68 Pulse Oximetry 95 94 94 04/13/20 19:20 04/13/20 19:45 04/13/20 20:10 Temperature 37.2 C 37.2 C Pulse Rate 90 100 96 Respiratory Rate 16 18 18 Blood Pressure 119/70 138/79 118/73 Pulse Oximetry 94 94 94 04/13/20 20:40 04/14/20 02:00 04/14/20 06:00 Temperature 37.2 C 36.4 C 36.1 C L Pulse Rate 107 H 65 64 Respiratory Rate 18 18 16 Blood Pressure 136/71 114/70 118/62 Pulse Oximetry 99 100 95 Intake/Output Intake/Output: Intake & Output 04/11/20 04/12/20 04/13/20 04/14/20 23:59 23:59 23:59 23:59 Intake Total 1050 2550 1200 Output Total 2100 2000 Balance 1050 450 -800 Meds/Results Medications: Active Medications Generic Name Dose Route Start Last Admin Trade Name Freq PRN Reason Stop Dose Admin Acetaminophen 650 mg 04/12/20 18:26 Tylenol Tablet PO Q4H PRN Mild Pain (1-3) or Fever Hydrocodone Bitart/Acetaminophen 1 tab 04/12/20 18:26 04/13/20 00:00 [place] 5-325 Mg PO 1 tab Q6H PRN Administration Moderate Pain (4-6) Hydrocodone Bitart/Acetaminophen 1 tab 04/13/20 08:5
--- NOTE | 2020-04-14 07:41 | WPDANESPN ---
Anes - Prog Note Post-Op Date/Time: 04/14/20 07:41 Cardiovascular status: normal Respiratory status: normal Airway patency: baseline Mental status: baseline Post-Op hydration status: normal Vital Signs: Last Vital Signs Temp 36.1 C L 04/14/20 06:00 Pulse 64 04/14/20 06:00 Resp 16 04/14/20 06:00 BP 118/62 04/14/20 06:00 Pulse Ox 95 04/14/20 06:00 I/O: Intake & Output 04/13/20 04/13/20 04/14/20 15:59 23:59 07:59 Intake Total 8059 753 8929 Output Total 1400 2000 Balance 1000 -850 -800 Laboratory Tests 04/14/20 06:04 04/14/20 06:04 04/13/20 04/14/20 04/14/20 02:00 06:04 06:04 WBC 10.2 H RBC 4.02 L Hgb 12.7 Hct 37.0 MCV 92.0 MCH 31.6 MCHC 34.3 RDW 12.2 Plt Count 289 MPV 9.6 Sodium 138 Potassium 4.2 Chloride 105 Carbon Dioxide 26 BUN 5 L Creatinine 0.60 L Estim Creat Clear Calc 158 Estimated GFR > 60 Glucose 164 H Calcium 8.8 SARS-CoV-2 RNA (RT-PCR) Negative Post-procedural complaints: none Patient Feedback: Patient satisfied with anesthetic care.
[2020-04-14] MEDS: ENOXAPARIN 40 MG/0.4 ML SYRINGE SUB-Q (10:14)
[2020-04-14 15:13] VITALS: BP 132/84; PULSE 74; RESP 18; TEMP 36.8; O2SAT 100
--- NOTE | 2020-04-14 19:56 | PM.DS ---
DS: Admitting Diagnosis Admitting Diagnosis Admitting Diagnosis: Unspecified ovarian cyst, unspecified side Acute uncomplicated retrocecal appendicitis PCOS DS: Discharge Diagnosis Discharge Diagnosis (1) Hirsutism: Onset Date: Unknown Code(s): L68.0 - Hirsutism Status: Acute Assessment and Plan: Most likely be will be benefited by some medication that Dr. Reyes will talk about on her postop visit in 2 weeks. (2) Obesity (BMI 30-39.9): Onset Date: Unknown Code(s): E66.9 - Obesity, unspecified Status: Acute Assessment and Plan: Encouraged the patient to follow a high-fiber low-fat Diabetic diet. (3) Acute appendicitis: Onset Date: ~04/11/20 Code(s): K35.80 - Unspecified acute appendicitis Status: Acute Assessment and Plan: this is the main reason for the patient's [place] she underwent laparoscopic appendectomy during admission. (4) Ovarian cyst: Onset Date: Unknown Code(s): N83.209 - Unspecified ovarian cyst, unspecified side Status: Acute Assessment and Plan: Noted on CT scan at the time evaluation for appendicitis was an 8 cm ovarian cyst that ended being off the left ovary. This was also removed time of surgery laparoscopically by Dr. Reyes. DS: Summary Hospital Course Reason for hospitalization: 1. appendicitis 2. complex ovarian cyst on the left Hospital Course: patient's hospital course was fairly uneventful. Because he had been exposed to some with COVID 19 virus she was isolated Abdiel admission from ER. Testing was upon admission subsequently reported on the day after admission. Since testing was negative we proceeded to the operating room for procedure of laparoscopy, left ovarian cyst removal, and appendectomy. Tolerated this well has 3 incisions. She was tolerating diet well on the day after surgery. She received antibiotics up until the time of surgery and then we stop them once surgery was over and there was no further reason for them. She was tolerating her pain on oral pain medication upon discharge. Status at Discharge Cognitive/behavioral status at discharge: doing well Functional status at discharge: independent ambulation Overall status at discharge: patient is back to baseline Time Spent with Patient Time attestation: Total time spent providing and/or coordinating discharge services: Exam Const: General: cooperative, no acute distress, alert and awake Orientation/consciousness: patient oriented x3 HENMT: Mouth: Yes moist mucous membranes Neck: Neck: normal visual inspection Chest: Chest palpation & inspection: normal inspection of the chest Resp: Effort & Inspection: normal respiratory effort Auscultation: clear to auscultation bilaterally Cardio: Jugular venous distension: no JVD Rate: regular rate Rhythm: regular rhythm GI: Inspection: incision ( All 3 incisions covered with surgical glue and without significant draina) and no visible herniation GI Palp: Yes abdominal tenderness ( just near her incisions.) Auscultation: normal bowel sounds ( Hypoactive to normal today.) Rectal Exam: deferred Neuro: General: patient oriented x3 and moves all extremities Speech: normal speech Extrem: General: normal exam except as noted Psych: Mental Status: mental status grossly normal Speech and movement: Normal speech and movement present Affect: normal affect Thought content: Yes Normal thought content present DS: Data Data Completed and Pending Pending studies at discharge: Pending at discharge 04/13/20 16:52 Surgical [PTH] Routine Surgical [PTH] Routine Labs on day of discharge: Labs from last 24 hours 04/14/20 04/14/20 06:04 06:04 WBC 10.2 H RBC 4.02 L Hgb 12.7 Hct 37.0 MCV 92.0 MCH 31.6 MCHC 34.3 RDW 12.2 Plt Count 289 MPV 9.6 Sodium 138 Potassium 4.2 Chloride 105 Carbon Dioxide 26 BUN 5 L Creatinine 0.60 L Est
[2020-04-17 05:57] LABS: CA-125 18 U/mL (<35)
== END 2020-04-14 15:35 | disposition home or self-care (01) ==
LOC: ANHED 18:49 → ANH3MEDSUR 19:17
PROVIDERS: Internal Medicine; Student in an Organized Health Care Education/Training Program; Admitting Provider Surgery; Emergency Provider Emergency Medicine; Visit Provider Surgery
PROC: 0DTJ4ZZ Resection of Appendix, Percutaneous Endoscopic Approach (ICD-10-PCS; CPT 44970; principal; 2020-04-13 16:00)
PROC: (CPT 49320; 2020-04-13 16:00)
DX: D27.1 Benign neoplasm of left ovary (principal); K36 Other appendicitis; L68.0 Hirsutism; E28.2 Polycystic ovarian syndrome; R03.0 Elevated blood-pressure reading, without diagnosis of hypertension; E66.9 Obesity, unspecified; Z68.38 Body mass index [BMI] 38.0-38.9, adult; Z20.828 Contact with and (suspected) exposure to other viral communicable diseases
CPT/HCPCS: 58662; 36415; 74177; 80048; 80053; 81001; 81025; 83690; 83735; 85025; 85027; 86304; 87635; 88304; 88305; 88307; 96361; 96365; 96366; 96374; 96375; 96376; 99285; A9270; C9803; G0378; J0131; J0330; J1100; J1170; J1335; J1650; J2250; J2270; J2405; J2704; J2710; J3010; J3480; J7030; J7120; Q9967; U0003

== ENCOUNTER 2020-05-08 09:08 | Outpatient (CLI) | payer OTHER, SELFPAY ==
[2020-05-08 09:31] LABS: Basophils Percent Auto 0.2 % (0.2-1.2); Eosinophils Absolute Auto 0.1 K/mm3 (0-0.3); Eosinophils Percent Auto 1.5 % (0-4.4); Hematocrit 40.3 % (37.0-47.0); Hemoglobin 14.2 g/dL (12.0-15.0); Immature Granulocyte Absolute 0.03 K/mm3 (0.00-0.031); Immature Granulocyte Percent A 0.4 % (0-0.5); Lymphocytes Absolute Auto 2.32 K/mm3 (0.9-3.2); Lymphocytes Percent Auto 27.5 % (18.3-44.2); Mean Corpuscular HGB Conc 35.2 g/dl (32-36); Mean Corpuscular Hemoglobin 31.8 pg (26-34); Mean Corpuscular Volume 90.2 fl (80-100); Mean Platelet Volume 9.8 fl (7.4-10.4); Monocytes Absolute Auto 0.3 K/mm3 (0.1-0.6); Monocytes Percent Auto 3.9 % (2.6-8.5); Neutrophils Absolute Auto 5.6 K/mm3 (1.3-6.7); Neutrophils Percent Auto 66.5 % (45.5-73.1); Platelet Count Result 292 k/mm3 (150-375); Red Blood Count 4.47 M/mm3 (4.2-5.4); Red Cell Distribution Width 12.3 % (11.5-14.5); White Blood Count 8.4 K/mm3 (4.5-10.0)
[2020-05-08 09:57] LABS: Add Urine Microscopic? YES; Appearance Urine Clear (Clear); Bilirubin Urine Negative (Negative); Blood Urine Negative (Negative); Color Urine Yellow (Yellow); Glucose Urine UA Negative (Negative); Ketones Urine Negative (Negative); Leukocyte Esterase Ur Negative LEU/UL (Negative); Mucus Urine Moderate /lpf; Nitrate Urine Negative (Negative); Protein Urine 1+ mg/dL (Negative); RBC Urine 0-2 /hpf (0-2); Specific Grav Ur 1.028 (1.001-1.035); Squamous Epithelial Cell Urine Few /hpf (Few); Urobilinogen Urine Negative mg/dL (<2.0); WBC Urine 0-3 /hpf
== END 2020-05-08 09:09 | disposition home or self-care (01) ==
LOC: ANHLAB 09:10
PROVIDERS: Visit Provider Nurse Practitioner Family
DX: R10.30 Lower abdominal pain, unspecified (principal)
CPT/HCPCS: 36415; 81001; 85025

== ENCOUNTER 2021-08-10 00:22 | Emergency (ER) | payer OTHER, SELFPAY ==
--- NOTE | ~2021-08-10 | CT_ITS ---
EXAMINATION: CT abdomen pelvis wo con DATE: 08/10/2021 01:44 INDICATION: Left flank pain. TECHNIQUE: Computed tomography (CT) of the abdomen and pelvis was performed without intravenous contr ast. Automated exposure control and iterative reconstruction technique were employed. The dose-length product was 1059.28 mGy-cm. COMPARISON: CT abdomen and pelvis 04/12/2020, 07/06/16 FINDINGS: The visualized portions of the lung bases demonstrate mild atelectasis. No pleural effusion . The heart size is normal. No pericardial effusion. There is diffuse hepatic steatosis. There are ch anges of cholecystectomy. The spleen, pancreas, adrenal glands, and right kidney are normal. There is mild left hydronephrosis. There is a 3 mm stone in proximal left ureter. There are no dilated loops of bowel. There are changes of appendectomy. There are no pathologically enlarged lymph nodes. There is no free intraperitoneal fluid. There is a 7.1 cm multiloculated cystic mass of left ovary. There i s mild lumbar spondylosis. IMPRESSION: 1. 3 mm stone in proximal left ureter with mild left hydronephrosis. 2. Diffuse hepatic steatosis. 3. 7.1 cm multiloculated cystic mass of left ovary, decreased from 8.2 cm on 04/12/2020 and not presen t on 07/06/16, most likely benign. Consider pelvic ultrasound. Reviewed, dictated and finalized at location A. OR IMPRESSION: 1. 3 mm stone in proximal left ureter with mild left hydronephrosis. 2. Diffuse hepatic steatosis. 3. 7.1 cm multiloculated cystic mass of left ovary, decreased from 8.2 cm on 09/2020 and not present on 07/06/16, most likely benign. Consider pelvic ultraso und.
[2021-08-10 00:59] VITALS: BP 146/100; PULSE 93; RESP 17; TEMP 36.9; O2SAT 99
[2021-08-10] MEDS: SODIUM CHLORIDE 0.9% IV 1,000 ML 999 ML IV CONT ×2 (01:21→02:41)
[2021-08-10] MEDS: KETOROLAC 30 MG/ML VIAL (*BKC) IV PUSH (01:22)
[2021-08-10] MEDS: ONDANSETRON INJ 4 MG/2 ML VIAL IV PUSH (01:22)
[2021-08-10 01:26] LABS: Basophils Percent Auto 0.2 % (0.2-1.2); Eosinophils Absolute Auto 0.1 K/mm3 (0-0.3); Eosinophils Percent Auto 1.5 % (0-4.4); Hematocrit 39.7 % (37.0-47.0); Hemoglobin 13.8 g/dL (12.0-15.0); Immature Granulocyte Absolute 0.06 K/mm3 (0.00-0.031); Immature Granulocyte Percent A 0.7 % (0-0.5); Lymphocytes Absolute Auto 1.93 K/mm3 (0.9-3.2); Lymphocytes Percent Auto 22.2 % (18.3-44.2); Mean Corpuscular HGB Conc 34.8 g/dl (32-36); Mean Corpuscular Hemoglobin 31.5 pg (26-34); Mean Corpuscular Volume 90.6 fl (80-100); Mean Platelet Volume 9.2 fl (7.4-10.4); Monocytes Absolute Auto 0.5 K/mm3 (0.1-0.6); Monocytes Percent Auto 6.2 % (2.6-8.5); Neutrophils Percent Auto 69.2 % (45.5-73.1); Platelet Count Result 281 k/mm3 (150-375); Red Blood Count 4.38 M/mm3 (4.2-5.4); Red Cell Distribution Width 12.2 % (11.5-14.5); White Blood Count 8.7 K/mm3 (4.5-10.0)
[2021-08-10 01:32] LABS: Alanine Aminotransferase 56 U/L (4-35); Albumin Level 4.6 g/dL (3.5-5.1); Alkaline Phosphatase 89 U/L (38-126); Anion Gap 11 mmol/L (8-16); Aspartate Amino Transferase 45 U/L (14-36); Bilirubin,Total 0.4 mg/dL (0.2-1.3); Blood Urea Nitrogen 13 mg/dL (7-17); Calcium 9.5 mg/dL (8.4-10.2); Carbon Dioxide 22 mmol/L (22-30); Chloride 105 mmol/L (98-107); Estimated CRCL calculation 78 ml/min; Estimated Glomerular Filt Rate 54; Glucose 147 mg/dL (65-110); Lactic Acid Reflex 1.4 mmol/L (0.7-2.1); Lipase 43 U/L (23-300); Sodium 138 mmol/L (137-145)
[2021-08-10 02:30] VITALS: BP 148/93; PULSE 87; RESP 15; O2SAT 99
[2021-08-10 02:41] LABS: Add Urine Microscopic? NO; Appearance Urine Clear (Clear); Bilirubin Urine Negative (Negative); Blood Urine Negative (Negative); Color Urine Yellow (Yellow); Glucose Urine UA Negative (Negative); Ketones Urine Negative (Negative); Leukocyte Esterase Ur Negative LEU/UL (Negative); Nitrate Urine Negative (Negative); Protein Urine Negative (Negative); Urobilinogen Urine Negative mg/dL (<2.0)
[2021-08-10 02:49] VITALS: RESP 17
--- NOTE | 2021-08-10 03:56 | ED.FEVER ---
HPI - Fever General Chief Complaint: Fever Stated Complaint: fever, diag w/ kidney stones thurs Time Seen by Provider: 08/10/21 00:39 History of Present Illness HPI Narrative: Patient is a 26-year-old female who presents ER with complaints of flank pain and subjective fever. Patient reports she was diagnosed with kidney stones on 08/05/2021 at [facility]. She reports its 3 mm. She was given follow-up with urology but does not think she can make the appointment. Since then she has developed sinus congestion with sore throat. Occasional cough. She feels warm at times. She thinks she has been eating and drinking okay however she has had some nausea that is kept her from drinking a lot of fluid. No urinary frequency urgency or dysuria. No aggravating or alleviating factors for pain. Patient is vaccinated against Covid. No loss of taste or smell. Related Data Home Medications Medication Instructions Recorded Confirmed No Home Medications 04/24/20 05/08/20 Allergies Allergy/AdvReac Type Severity Reaction Status Date / Time Penicillins Allergy Unknown RASH ON Verified 08/10/21 01:06 FOREHEAD, WELPS UNDER EYES Review of Systems Review of Systems: All systems reviewed & are unremarkable except as noted in HPI and below Constitutional: Constitutional: Denies chills, Reports fatigue and Reports fever(s) ENT: Reports nasal congestion and Reports sore throat Cardiovascular: Cardiovascular: Denies chest pain, Denies rapid heart rate and Denies radiating jaw, neck or arm pain Respiratory: Respiratory: Reports cough, Denies dyspnea and Denies wheezing Gastrointestinal: Gastrointestinal: Reports abdominal pain, Denies diarrhea, Reports nausea and Denies vomiting Genitourinary: Genitourinary: Denies hematuria, Denies dysuria and Reports flank pain [facility] Past Medical History Medical History (Updated 08/10/21 @ 04:02 by Jayden Chaudhari MD) Hirsutism (Unknown) Kidney stones Obesity (BMI 30-39.9) (Unknown) Polycystic ovarian syndrome Surgical History Surgical History History of laparoscopic cholecystectomy March 2016 S/P laparoscopic appendectomy Family History Family History Mother Kidney stones Social History Social History Social History: Primary care physician: None Smoking status: Never smoker Alcohol intake: current Drinks per week: 1 Alcohol use details: The patient rarely drinks alcohol once every 3 or 4 months. Substance use: never Additional living arrangements comments: The patient lives with her fiance. She does not have any children. 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 Gender identity (if verbalized by the patient): Female Spiritual care concerns: No Exam Narrative: GENERAL: Well-appearing, obese, and in no acute distress. HEAD: Normocephalic, atraumatic. CHEST: Clear to auscultation. No respiratory distress. HEART: Regular rate and rhythm. Normal peripheral pulses. ABDOMEN: Soft, nontender, nondistended. EXTREMITIES: Normal range of motion. No edema. SKIN: Warm, dry, no rash. NEURO: Alert and oriented x3. PSYCH: Normal mood and affect. Course DEBT COLLECTOR/PA Physician Supervision Patient resting comfortably. She has received 2 L of IV fluid. She has been informed of results. Encouraged hydration for home and need to follow-up with urology. We will also give urology follow-up here in case she does not want to go to [facility]. Vital Signs Vital signs: Vital Signs Temperature 98.5 F 08/10/21 00:59 Pulse Rate 93 08/10/21 00:59 Respiratory Rate 17 08/10/21 00:59 Blood Pressure 146/100 H 08/10/21 00:59 Pulse Oximetry 99 08/10/21 00:59 Temperature 98.5 F 08/10/21 00:59 Pulse Rate 87 08/10/21 0
[2021-08-10 04:20] VITALS: BP 142/88; PULSE 84; RESP 17; O2SAT 100
== END 2021-08-10 04:20 | disposition home or self-care (01) ==
PROVIDERS: Emergency Provider Emergency Medicine
DX: N20.0 Calculus of kidney (principal); J06.9 Acute upper respiratory infection, unspecified; Z87.442 Personal history of urinary calculi
CPT/HCPCS: 36415; 74176; 80053; 81003; 81025; 83605; 83690; 85025; 96361; 96374; 96375; 99284; J1885; J2405; J7030

== ENCOUNTER 2021-08-28 14:28 | Emergency (ER) | payer OTHER, SELFPAY ==
--- NOTE | ~2021-08-28 | US_ITS ---
EXAMINATION: US pelvic complete w TV DATE: 08/28/2021 15:34 INDICATION: Left adnexal pain Comparison:CT dated 08/10/2021 TECHNIQUE: Multiple transabdominal and endovaginal sonographic images of the pelvis performed. FINDINGS: The uterus measures 7.3 x 3.1 x 4.5 cm. There are nabothian cysts. The endometrial complex measures 6 mm. The right ovary measures 4 x 2.1 x 3.2 cm and the left ovary measures 6.8 x 2.8 x 7.8 cm there are co mplicated cysts possibly exophytic from the left ovary with internal septations. There may be 2 separ ate cysts, largest measuring 5.4 x 2.5 x 5.3 cm and the smaller measuring 5.1 x 4.5 x 3 cm.. . Vesta l doppler signal in both ovaries. There is no free fluid in the pelvis. There are no abnormal masses seen on either side. IMPRESSION: 1. Enlarged left ovary containing one and possibly 2 complicated large cysts measuring up to 5.4 cm. These most likely represent complicated functional cysts, although cystadenoma or cystadenocarcinoma are not entirely excluded. Recommend follow-up ultrasound in 4-6 weeks to assess for resolution. Reviewed, dictated and finalized at location [facility]. [facility] IMPRESSION: 1. Enlarged left ovary containing one and possibly 2 complicated large cysts me asuring up to 5.4 cm. These most likely represent complicated functional cysts, although cystadenoma or cystadenocarcinoma are not entirely excluded. Recommen d follow-up ultrasound in 4-6 weeks to assess for resolution.
[2021-08-28 14:31] VITALS: BP 159/103; PULSE 111; RESP 18; TEMP 36.4; O2SAT 100
[2021-08-28 14:54] LABS: Basophils Percent Auto 0.2 % (0.2-1.2); Eosinophils Absolute Auto 0.1 K/mm3 (0-0.3); Eosinophils Percent Auto 1.5 % (0-4.4); Hematocrit 42.1 % (37.0-47.0); Hemoglobin 14.7 g/dL (12.0-15.0); Immature Granulocyte Absolute 0.02 K/mm3 (0.00-0.031); Immature Granulocyte Percent A 0.2 % (0-0.5); Lymphocytes Absolute Auto 2.96 K/mm3 (0.9-3.2); Lymphocytes Percent Auto 33.9 % (18.3-44.2); Mean Corpuscular HGB Conc 34.9 g/dl (32-36); Mean Corpuscular Hemoglobin 31.6 pg (26-34); Mean Corpuscular Volume 90.5 fl (80-100); Mean Platelet Volume 9.4 fl (7.4-10.4); Monocytes Absolute Auto 0.4 K/mm3 (0.1-0.6); Monocytes Percent Auto 4.7 % (2.6-8.5); Neutrophils Absolute Auto 5.2 K/mm3 (1.3-6.7); Neutrophils Percent Auto 59.5 % (45.5-73.1); Platelet Count Result 328 k/mm3 (150-375); Red Blood Count 4.65 M/mm3 (4.2-5.4); White Blood Count 8.7 K/mm3 (4.5-10.0)
[2021-08-28 15:04] LABS: Alanine Aminotransferase 85 U/L (4-35); Albumin Level 4.8 g/dL (3.5-5.1); Alkaline Phosphatase 92 U/L (38-126); Anion Gap 8 mmol/L (8-16); Aspartate Amino Transferase 82 U/L (14-36); Bilirubin,Total 0.4 mg/dL (0.2-1.3); Blood Urea Nitrogen 12 mg/dL (7-17); Calcium 9.7 mg/dL (8.4-10.2); Carbon Dioxide 27 mmol/L (22-30); Chloride 103 mmol/L (98-107); Estimated CRCL calculation 127 ml/min; Estimated Glomerular Filt Rate > 60; Glucose 205 mg/dL (65-110); Lipase 62 U/L (23-300); Potassium 3.9 mmol/L (3.4-5.0); Sodium 138 mmol/L (137-145)
[2021-08-28 15:11] LABS: Add Urine Microscopic? YES; Appearance Urine Clear (Clear); Bilirubin Urine Negative (Negative); Blood Urine Negative (Negative); Color Urine Yellow (Yellow); Glucose Urine UA 1+ mg/dL (Negative); Ketones Urine Negative (Negative); Leukocyte Esterase Ur Negative LEU/UL (Negative); Mucus Urine Rare /lpf; Nitrate Urine Negative (Negative); Protein Urine Negative (Negative); Specific Grav Ur 1.025 (1.001-1.035); Squamous Epithelial Cell Urine Few /hpf (Few); Urobilinogen Urine Negative mg/dL (<2.0); WBC Urine 0-3 /hpf
--- NOTE | 2021-08-28 16:45 | ED.ABDPAIN ---
HPI - Abdominal Pain General Chief Complaint: Abdominal Pain Stated Complaint: abdominal pain Time Seen by Provider: 08/28/21 14:49 History of Present Illness HPI narrative: Patient is a 26-year-old female who presents ER with complaint of pelvic pain. Has been an ongoing issue over the last couple months. Originally passed a kidney stone and was cleared by urology. She has been following with gynecology for a left adnexal cyst. She may require surgery. She reports she has persistent pain that goes into her back and will occasionally have a spike in her pain. No fevers or chills or sweats. She has no vaginal discharge. No urinary symptoms. Her manager clinical pharmacy has been having trouble getting images from an outside OB group in order to get scheduled for surgery. Related Data Home Medications Medication Instructions Recorded Confirmed No Home Medications 04/24/20 08/28/21 Allergies Allergy/AdvReac Type Severity Reaction Status Date / Time Penicillins Allergy Unknown RASH ON Verified 08/28/21 14:33 FOREHEAD, WELPS UNDER EYES Review of Systems Review of Systems: All systems reviewed & are unremarkable except as noted in HPI and below Constitutional: Constitutional: Denies chills, Denies fever(s) and Denies weakness Cardiovascular: Cardiovascular: Denies chest pain, Denies rapid heart rate and Denies radiating jaw, neck or arm pain Respiratory: Respiratory: Denies cough and Denies dyspnea Gastrointestinal: Gastrointestinal: Reports abdominal pain, Denies diarrhea, Denies nausea and Denies vomiting Genitourinary: Genitourinary: Denies abnormal vaginal bleeding, Denies nocturia, Denies dysuria, Reports pelvic pain and Denies vaginal discharge [facility] Past Medical History Medical History (Updated 08/28/21 @ 17:49 by Jayden Chaudhari MD) Hirsutism (Unknown) Kidney stones Obesity (BMI 30-39.9) (Unknown) Polycystic ovarian syndrome Surgical History Surgical History History of laparoscopic cholecystectomy March 2016 S/P laparoscopic appendectomy Family History Family History Mother Kidney stones Social History Social History Social History: Primary care physician: None Smoking status: Never smoker Alcohol intake: current Drinks per week: 1 Alcohol use details: The patient rarely drinks alcohol once every 3 or 4 months. Substance use: never Additional living arrangements comments: The patient lives with her fiance. She does not have any children. 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 Gender identity (if verbalized by the patient): Female Spiritual care concerns: No Exam Narrative: GENERAL: Well-appearing, well-nourished, and in no acute distress. HEAD: Normocephalic, atraumatic. CHEST: Clear to auscultation. No respiratory distress. HEART: Regular rate and rhythm. Normal peripheral pulses. ABDOMEN: Soft, mild tenderness left pelvic/adnexal region, nondistended, normal active bowel sounds. EXTREMITIES: Normal range of motion. No edema. SKIN: Warm, dry, no rash. NEURO: Alert and oriented x3. PSYCH: Normal mood and affect. Course Course Emergency Course: Patient informed results. Discussed case with Dr. Alvarado who is on-call for patient's manager clinical pharmacy. Patient is to follow-up this week and contact her manager clinical pharmacy on Monday. Patient has been taking narcotic as well as nonnarcotic pain medication. No additional medications we can offer. Vital Signs Vital signs: Vital Signs Temperature 97.6 F 08/28/21 14:31 Pulse Rate 111 H 08/28/21 14:31 Respiratory Rate 18 08/28/21 14:31 Blood Pressure 159/103 H 08/28/21 14:31 Pulse Oximetry 100 08/28/21 14:31 Temperature 97.6 F 08/28/21 14:31 Pulse Rate 97 08/28/21 17:20 Respirator
[2021-08-28 17:20] VITALS: BP 117/74; PULSE 97; RESP 18; O2SAT 99
== END 2021-08-28 18:04 | disposition home or self-care (01) ==
PROVIDERS: Emergency Medicine; Emergency Provider Emergency Medicine; PCP Emergency Medicine
DX: E28.2 Polycystic ovarian syndrome (principal); E66.9 Obesity, unspecified; Z68.34 Body mass index [BMI] 34.0-34.9, adult; Z87.442 Personal history of urinary calculi
CPT/HCPCS: 36415; 76830; 76856; 80053; 81001; 83690; 85025; 99284

== ENCOUNTER 2021-09-01 00:54 | Day surgery (SDC) | payer OTHER, SELFPAY ==
[2021-08-30 11:41] VITALS: BMI 36.0
--- NOTE | 2021-08-30 11:49 | PC.NURSE ---
Report to the Outpatient Waiting Room, entrance under the green pavilion located off [facility], at time 1130 on date 09/01/21. OR Time: 1330. - You and your visitor will be asked a series of questions to screen for COVID 19 for your protection. - A mask is required within the hospital. - Only one visitor is allowed at this time. Patient visitors will be guided where to wait when not with patient. Preoperative COVID Testing Requirements: No COVID Test needed if: (proof is required; if not received patient will have Rapid Test prior to entry) - Patient has received COVID Vaccine at least 14 days prior to procedure date or - Patient has positive COVID test result within last 90 days of surgery date. COVID Test needed if above criteria is not met If not COVID vaccinated a COVID test must be conducted within 72 hours of surgery and patient is asked to isolate self from time of testing until procedure. You will go to the [facility] for your COVID testing. The [facility] is located at the corner of [address] [facility]. You will only be called if COVID results are positive and your surgeon may reschedule your elective surgery date. Patients may have clear liquids (water, carbonated beverages, clear teas, apple juice) until 3 hours prior to surgery with a maximum of 20 ounces. - No food from midnight until time of surgery - Infants may have breast milk until 4 hours before surgery, formula 6 hours prior to surgery. - Children will be allowed to drink immediately following surgery. If applicable, please bring a bottle or sippy cup to assist with drinking. Juice, water, soda, and popsicles are readily available. For infants on formula, please bring formula the day of surgery. Pacifiers are allowed. Take the following medications with a SIP of water the morning of surgery: PAIN PILL (IF NEEDED) Medications to discontinue per physician: TORADOL Date to take last dose: PER DR. CAST Please no make-up, nail lao, hairspray, perfume, deodorant, or body powder the day of surgery. No jewelry (including any body piercings) or valuables the day of surgery, leave them at home. Please take a shower or bath the night before, or the morning of, surgery with an antibacterial soap. Wear comfortable, loose fitting clothing. Children are encouraged to wear pajamas. - Jewelry must be removed prior to entering the operating room. Rings and piercings that are not removed may be cut off. - The hospital will not accept responsibility for valuables. - Please leave all valuables, including medications, at home the day of surgery. If you are going home after surgery, a licensed rolloff driver must drive you home. - NO public transportation without another adult. - We recommend that an adult stay with you for 24 hours following discharge. - We also recommend that you do not drive, make important decision, drink alcoholic beverages, or take any drugs that were not prescribed by your health care provider for at least 24 hours after your discharge time. For Pediatric surgeries, we recommend two adults accompany the child home (only one inside the building at this time). Follow any additional instructions given to you from your surgeon. Telephone instructions given to NOELLE GARCIA and asked if any additional questions and then verbalized understanding. Patient advised to call surgeon office or pre surgery nurse liaison [phone] if any additional questions.
[2021-09-01] VITALS (12 sets, daily range): BP systolic 115–146; BP diastolic 67–106; PULSE 69–98; RESP 10–16; TEMP 36.8–36.9; O2SAT 98–100
--- NOTE | 2021-09-01 06:45 | PM.IMHP ---
H&P: HPI History of Present Illness Date/Time: 09/01/21 06:45 Chief Complaint: pelvic pain ovarian cyst Narrative: 26 yo G0 who presents for laparoscopic left ovarian cystectomy with possible oophorectomy. Pt initially presented to the ER on 08/05/21 with LLQ abdominal pain. She was initially managed for renal calculi and discharged. She returned to ER on 08/09 with worsening pain. Imaging revealed a multiloculated cyst in the left ovary. Pt had outpatient follow up with another crusher tender. She presented to me for a second opinion. Pt has a history of PCOS and large ovarian cysts. Pt underwent laparoscopic left ovarian cystectomy on 04/13/21 at the time of appendectomy. Pt was placed on OCPs but self stopped. Will plan for repeat laparoscopic left ovarian cystectomy. Review of Systems Cardiovascular: Cardiovascular: Denies chest pain, Denies leg edema, Denies palpitations, Denies dyspnea and Denies dyspnea on exertion Respiratory: Respiratory: Denies cough, Denies dyspnea and Denies dyspnea on exertion Gastrointestinal: Gastrointestinal: Denies abdominal pain, Denies constipation, Denies diarrhea, Denies nausea and Denies vomiting Genitourinary: Genitourinary: Denies hematuria, Denies urinary frequency, Denies dysuria, Denies pelvic pain, Denies urinary incontinence and Denies vaginal discharge Neurologic: Reports system reviewed and no additional complaints, except as documented Psychiatric: Psychiatric: Reports no additional psychiatric complaints Endocrine: Endocrine: Denies palpitations PMFSH Past Medical History Medical History (System 08/31/21 @ 08:44 by Regino Banegas) Hirsutism (Unknown) Kidney stones Obesity (BMI 30-39.9) (Unknown) Polycystic ovarian syndrome Surgical History Surgical History (System 08/31/21 @ 08:44 by Regino Banegas) History of laparoscopic cholecystectomy March 2016 S/P laparoscopic appendectomy Family History Family History (System 08/31/21 @ 08:44 by Regino Banegas) Mother Kidney stones Mother Family history of kidney stones Social History Social History (System 08/31/21 @ 08:44 by Regino Banegas) Social History: Primary care physician: None Smoking status: Never smoker Alcohol intake: current Drinks per week: 1 Alcohol use details: The patient rarely drinks alcohol once every 3 or 4 months. Substance use: never Living arrangements: with family Additional living arrangements comments: The patient lives with her fiance. She does not have any children. 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 Gender identity (if verbalized by the patient): Female Spiritual care concerns: No Meds Home Medications and Allergies Home Medications Medication Instructions Recorded Confirmed Type No Home Medications 04/24/20 08/28/21 History Allergies Allergy/AdvReac Type Severity Reaction Status Date / Time Penicillins Allergy Unknown RASH ON Verified 08/31/21 08:44 FOREHEAD, WELPS UNDER EYES Exam Const: General: no acute distress Eyes: EOM: EOMs intact bilaterally Neck: Neck: supple Thyroid: thyroid normal Chest: Breast/axilla inspection: normal inspection of the breasts Breast/axilla palpation: normal palpation of the breasts, normal palpation of the axillae and no axillary lymphadenopathy Resp: Effort & Inspection: normal respiratory effort Auscultation: clear to auscultation bilaterally Cardio: Rate: regular rate Rhythm: regular rhythm GI: Inspection: non-distended and obesity GI Palp: Yes abdominal tenderness, Yes Soft to palpation, Yes Tenderness to palpation present (GI), No Guarding due to palpation present (GI) and No Rebound tenderness present Auscultation: normal bowel sounds : General: No bladder normal to palpation External Female Exam: normal external appearance Speculum Exam - Vagina: normal vaginal discharge and No vaginal bleeding Speculum
--- NOTE | 2021-09-01 06:54 | WPDHPUPDATE1 ---
History and Physical Update Update Date/Time: 09/01/21 06:54 History and Physical has been reviewed, including an updated exam of the patient. There are NO changes in the patient's condition. Risks, benefits, and alternatives have been discussed and questions answered. Patient agrees to proceed with procedure.
[2021-09-01] MEDS: ACETAMINOPHEN 500 MG TABLET 1000 MG PO (10:44)
[2021-09-01] MEDS: KETOROLAC 15 MG/ML VIAL (*BKC) IV PUSH (11:04)
[2021-09-01] MEDS: LACTATED RINGERS 1,000 ML 30 ML IV CONT ×2 (11:05→14:04)
--- NOTE | 2021-09-01 11:48 | SUR.PREOP ---
PT AND MOTHER, MARNIE AWARE OF DELAY RE: PREV CASE RUNNING OVERTIME. ETA 1230. PT DENIES NEEDS AND VERBALIZES UNDERSTANDING.
--- NOTE | 2021-09-01 12:00 | WPDANESEPPF ---
Anes - Initial Pre Proc Eval Procedure: Operation Date: 09/01/21 12:00 Proposed Procedures p Laparoscopic Left Ovarian Cystectomy, Possible Left Salpingo Oophorectomy - Cuauhtemoc Reyes MD Date/Time: 09/01/21 12:00 Surgeon: Cuauhtemoc Reyes MD Pre Op Diagnosis: pain,left ovarian cyst Patient Data Age: 26 Gender: F Height: 1.7 m Weight: 104.33 kg Last Vital Signs Temp 36.8 C 09/01/21 11:15 Pulse 85 09/01/21 11:46 Resp 16 09/01/21 11:15 BP 136/72 09/01/21 11:46 Pulse Ox 99 09/01/21 11:15 Allergies Allergy/AdvReac Type Severity Reaction Status Date / Time Penicillins Allergy Unknown RASH ON Verified 09/01/21 11:17 FOREHEAD, WELPS UNDER EYES Home Medications Medication Instructions Recorded Confirmed Type No Home Medications 04/24/20 09/01/21 History Patient hx anesthesia problems: post op nausea/vomiting Family hx anesthesia problems: none Results Review: All pre-operative results and documents have been reviewed as part of the pre-operative evaluation. [facility] Past Medical History Medical History Hirsutism (Unknown) Kidney stones Obesity (BMI 30-39.9) (Unknown) Polycystic ovarian syndrome Surgical History Surgical History History of laparoscopic cholecystectomy March 2016 S/P laparoscopic appendectomy Family History Family History Mother Kidney stones Mother Family history of kidney stones Social History Social History Social History: Primary care physician: None Smoking status: Never smoker Alcohol intake: current Drinks per week: 1 Alcohol use details: The patient rarely drinks alcohol once every 3 or 4 months. Substance use: never Living arrangements: with family Additional living arrangements comments: The patient lives with her fiance. She does not have any children. 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 Gender identity (if verbalized by the patient): Female Spiritual care concerns: No Anes - Eval Final PreProcedure Day of Procedure 09/01/21 12:00 Patient weight: obese Heart: regular rate and rhythm Lungs: clear to auscultation Airway: Mallampati scale class II Neurological: alert and oriented Last oral intake: >/= 8 hours ASA classification: II Emergent: no Anesthetic plan: proceed Anesthesia type and monitoring: general ETT and standard monitoring Results Review: All pre-operative results and documents have been reviewed as part of the pre-operative evaluation. Informed Consent: The patient's anesthetic plan and its attendant risks and benefits were discussed with the patient/family/POA. Questions were solicited and answers provided to the satisfaction of the patient/family/POA.
[2021-09-01] MEDS: SCOPOLAMINE 1.5 MG PATCH TRANSDERM (12:14)
[2021-09-01] MEDS: LIDO 1%/EPINEPHRINE/PF 1:200,000 30 ML VIAL INFILTRATE (13:10)
--- NOTE | 2021-09-01 13:55 | W.PM.PROC2 ---
Procedure Note - Detailed Date of Procedure 09/01/21 Pre-op Diagnosis pain,left ovarian cyst Post-op Diagnosis same Procedure Performed laparoscopic left ovarian cystectomy Surgeon Cuauhtemoc Reyes MD Anesthesia general Indications pelvic pain left ovarian cyst Findings enlarged ovary with 2 large multi-loculated cysts extending from the left ovary Description of Procedure The patient was taken to the operating room where general endotracheal anesthesia was undertaken and found to be adequate. She was then prepped and draped in the dorsal lithotomy position and placed in adjustable stirrups. A pre-operative team brief and a time out were completed. A catheter was placed to drain the bladder. Retractors were placed placed in the vagina and the cervix was identified. An acorn uterine manipulator was placed. Attention was then turned to the abdomen which was anesthetized umbilically with injected anesthestic. A 5 mm skin incision was made in the umbilicus. A 5 mm optical trocar was then placed with direct camera visualization of the abdominal layers during placement. The trocar stylet was removed and the camera was used to verify intra-abdominal placement. CO2 insufflation was then connected and resumed. The pelvis was inspected. A left lower quadrant 5 mm port was placed, in addition to a right lower quadrant 5 port in the standard fashion after using local anesthetic. The pelvis was inspected. The large ovarian cysts was grasped with a blunt grasper. An asipration needle was introduced and used to drain fluid from the cysts. The cyst was noted to be filled with a clear fluid. After the cysts were drained, it was noted that they appeared to be pedunculated and extending from the medial aspect of the left ovary. The two cysts were then ligated along the pedunculated stalk with the ligasure device. The two enlarged cysts were then removed from the left ovary. The umbilical incision was then extended to allow a 11 mm laparoscopic port. An endopouch was then introduced through the umbilicus and the cysts were placed within the pouch. The pouch and specimen were removed from the abdomen through the umbilical incision. The surgical field was thoroughly irrigated using normal saline. All surgical beds were noted to be hemostatic. A gustavo-tamar device was used to close the fascia under direct visualization. The abdomen was relieved of all CO2 gas. All remaining trocars were removed from the abdomen. Sponge, lap and needle counts were correct. All skin incisions were closed with 4-0 Vicryl suture subcuticularly. The uterine manipulator was removed from the uterus. Hemostasis of the cervix was noted. The urinary catheter was removed. The patient was taken out of dorsal lithotomy position. Anesthesia was reversed. The patient was taken to the PACU. Estimated Blood Loss 50 Urine Output 50 Drains No Packing No Pathology yes (left ovarian cyst) Complications No immediate complications Condition stable Disposition PACU
[2021-09-01] MEDS: fentaNYL CITRATE INJ (*CRX) 100 MCG/2 ML VIAL 25 MCG IV PUSH ×4 (15:04→15:21)
[2021-09-01] MEDS: ONDANSETRON INJ 4 MG/2 ML VIAL IV PUSH (15:46)
== END 2021-09-01 16:45 | disposition home or self-care (01) ==
PROVIDERS: Visit Provider Student in an Organized Health Care Education/Training Program
PROC: (CPT 49320; principal; 2021-09-01 12:00)
DX: D27.1 Benign neoplasm of left ovary (principal); R10.2 Pelvic and perineal pain; E28.2 Polycystic ovarian syndrome; E66.9 Obesity, unspecified; Z68.36 Body mass index [BMI] 36.0-36.9, adult
CPT/HCPCS: 58662; 36415; 86850; 86900; 86901; 88305; A9270; J1100; J1885; J2250; J2405; J2704; J2710; J3010; J7030; J7120

== ENCOUNTER 2021-11-19 04:03 | Day surgery (SDC) | payer OTHER, SELFPAY ==
[2021-11-15 12:42] VITALS: BMI 36.0
--- NOTE | 2021-11-15 12:50 | PC.NURSE ---
Report to the Outpatient Waiting Room, entrance under the green pavilion located off [facility], at time 1130 on date 11/19/21. OR Time: 1330. - You will be asked a series of questions to screen for COVID 19 for your protection. - A mask is required within the hospital. - No visitors are allowed at this time. Preoperative COVID Testing Requirements: No COVID Test needed if: (proof is required; if not received patient will have Rapid Test prior to entry) - Patient has received COVID Vaccine at least 14 days prior to procedure date or - Patient has positive COVID test result within last 90 days of surgery date. COVID Test needed if above criteria is not met Patients may have clear liquids (water, carbonated beverages, clear teas, apple juice) until 3 hours prior to surgery with a maximum of 20 ounces. - No food from midnight until time of surgery Take the following medications with a SIP of water the morning of surgery: TYLENOL (IF NEEDED) Medications to discontinue per physician: IBUPROFEN Date to take last dose: PER DR. CAST Please no make-up, nail azeri, hairspray, perfume, deodorant, or body powder the day of surgery. No jewelry (including any body piercings) or valuables the day of surgery, leave them at home. Please take a shower or bath the night before, or the morning of, surgery with an antibacterial soap. Wear comfortable, loose fitting clothing. - Jewelry must be removed prior to entering the operating room. Rings and piercings that are not removed may be cut off. - The hospital will not accept responsibility for valuables. - Please leave all valuables, including medications, at home the day of surgery. If you are going home after surgery, a licensed distribution driver must drive you home. - NO public transportation without another adult. - We recommend that an adult stay with you for 24 hours following discharge. - We also recommend that you do not drive, make important decision, drink alcoholic beverages, or take any drugs that were not prescribed by your health care provider for at least 24 hours after your discharge time. Follow any additional instructions given to you from your surgeon. Telephone instructions given to NOELLE GARCIA and asked if any additional questions and then verbalized understanding. Patient advised to call surgeon office or pre surgery nurse liaison [phone] if any additional questions.
[2021-11-19 12:21] VITALS: BP 141/99; PULSE 106; RESP 14; TEMP 37.2; O2SAT 99
[2021-11-19] MEDS: ACETAMINOPHEN 500 MG TABLET 1000 MG PO (12:22)
[2021-11-19] MEDS: LACTATED RINGERS 1,000 ML 30 ML IV CONT (12:23)
--- NOTE | 2021-11-19 12:59 | PM.IMHP ---
H&P: HPI History of Present Illness Date/Time: 11/19/21 12:59 Chief Complaint: abnormal uterine bleeding Narrative: 26 yo who presents for hysteroscopy and D&C for abnormal uterine bleeding. Pt has had persistent heavy vaginal bleeding. Pt underwent laparoscopic ovarian cystectomy on 22/10/20 for PCOS. Since that time, she has had persistent bleeding. She was started on hormonal contraceptives. She continued to have breakthrough bleeding. She has opted for surgical management via D&C. Review of Systems Cardiovascular: Cardiovascular: Denies chest pain, Denies leg edema, Denies palpitations, Denies dyspnea and Denies dyspnea on exertion Respiratory: Respiratory: Denies cough, Denies dyspnea and Denies dyspnea on exertion Gastrointestinal: Gastrointestinal: Denies abdominal pain, Denies constipation, Denies diarrhea, Denies nausea and Denies vomiting Genitourinary: Genitourinary: Denies hematuria, Denies urinary frequency, Denies dysuria, Denies pelvic pain, Denies urinary incontinence and Denies vaginal discharge Neurologic: Reports system reviewed and no additional complaints, except as documented Psychiatric: Psychiatric: Reports no additional psychiatric complaints Endocrine: Endocrine: Denies palpitations PMFSH Past Medical History Medical History Hirsutism (Unknown) Kidney stones Obesity (BMI 30-39.9) (Unknown) Polycystic ovarian syndrome Surgical History Surgical History History of laparoscopic cholecystectomy March 2016 S/P laparoscopic appendectomy Family History Family History Mother Kidney stones Mother Family history of kidney stones Social History Social History Social History: Primary care physician: None Smoking status: Never smoker Alcohol intake: current Drinks per week: 1 Alcohol use details: EVERY COUPLE MONTHS Substance use: never Substance use type: does not use Living arrangements: with family Additional living arrangements comments: BOYFRIEND Additional occupation/education comments: She works as a home health aide. Gender identity (if verbalized by the patient): Female Sexual Orientation (if Verbalized by the Patient): Straight or Heterosexual Spiritual care concerns: No Meds Home Medications and Allergies Home Medications Medication Instructions Recorded Confirmed Type acetaminophen 500 mg PO Q6H PRN #30 cap 09/01/21 11/19/21 Rx ibuprofen 600 mg PO Q6H PRN #30 tablet 09/01/21 11/19/21 Rx Allergies Allergy/AdvReac Type Severity Reaction Status Date / Time Penicillins Allergy Unknown RASH ON Verified 11/19/21 12:18 FOREHEAD, WELPS UNDER EYES Vital Signs Vital Signs - 24 hr 11/19/21 12:21 Temperature 37.2 C Pulse Rate 106 H Respiratory Rate 14 Blood Pressure 141/99 H Pulse Oximetry 99 Exam Const: General: no acute distress Eyes: EOM: EOMs intact bilaterally Neck: Neck: supple Thyroid: thyroid normal Chest: Breast/axilla inspection: normal inspection of the breasts Breast/axilla palpation: normal palpation of the breasts, normal palpation of the axillae and no axillary lymphadenopathy Resp: Effort & Inspection: normal respiratory effort Auscultation: clear to auscultation bilaterally Cardio: Rate: regular rate Rhythm: regular rhythm GI: Inspection: non-distended GI Palp: Yes Soft to palpation, No Tenderness to palpation present (GI) and No Guarding due to palpation present (GI) Auscultation: normal bowel sounds : General: No bladder normal to palpation External Female Exam: normal external appearance Speculum Exam - Vagina: normal vaginal discharge and No vaginal bleeding Speculum Exam - Cervix: nontender Bimanual exam- vagina & uterus: No bladder normal to
--- NOTE | 2021-11-19 13:20 | WPDHPUPDATE1 ---
History and Physical Update Update Date/Time: 11/19/21 13:20 History and Physical has been reviewed, including an updated exam of the patient. There are NO changes in the patient's condition. Risks, benefits, and alternatives have been discussed and questions answered. Patient agrees to proceed with procedure.
--- NOTE | 2021-11-19 13:38 | WPDANESEPPF ---
Anes - Initial Pre Proc Eval Procedure: Operation Date: 11/19/21 13:30 Proposed Procedures p Hysteroscopy Dilation and Curettage - Cuauhtemoc Reyes MD Date/Time: 11/19/21 13:38 Surgeon: Cuauhtemoc Reyes MD Pre Op Diagnosis: excessive bleeding Patient Data Age: 26 Gender: F Height: 1.7 m Weight: 102.2 kg Last Vital Signs Temp 37.2 C 11/19/21 12:21 Pulse 106 H 11/19/21 12:21 Resp 14 11/19/21 12:21 BP 141/99 H 11/19/21 12:21 Pulse Ox 99 11/19/21 12:21 Allergies Allergy/AdvReac Type Severity Reaction Status Date / Time Penicillins Allergy Unknown RASH ON Verified 11/19/21 12:18 FOREHEAD, WELPS UNDER EYES Home Medications Medication Instructions Recorded Confirmed Type acetaminophen 500 mg PO Q6H PRN #30 cap 09/01/21 11/19/21 Rx ibuprofen 600 mg PO Q6H PRN #30 tablet 09/01/21 11/19/21 Rx Patient hx anesthesia problems: none Family hx anesthesia problems: none Results Review: All pre-operative results and documents have been reviewed as part of the pre-operative evaluation. [facility] Past Medical History Medical History Hirsutism (Unknown) Kidney stones Obesity (BMI 30-39.9) (Unknown) Polycystic ovarian syndrome Surgical History Surgical History History of laparoscopic cholecystectomy March 2016 S/P laparoscopic appendectomy Family History Family History Mother Kidney stones Mother Family history of kidney stones Social History Social History Social History: Primary care physician: None Smoking status: Never smoker Alcohol intake: current Drinks per week: 1 Alcohol use details: EVERY COUPLE MONTHS Substance use: never Substance use type: does not use Living arrangements: with family Additional living arrangements comments: BOYFRIEND Additional occupation/education comments: She works as a home health aide. Gender identity (if verbalized by the patient): Female Sexual Orientation (if Verbalized by the Patient): Straight or Heterosexual Spiritual care concerns: No Anes - Eval Final PreProcedure Day of Procedure 11/19/21 13:38 Patient weight: obese Heart: regular rate and rhythm Lungs: clear to auscultation Airway: Mallampati scale class II Neurological: alert and oriented Last oral intake: >/= 8 hours ASA classification: II Emergent: no Anesthetic plan: proceed Anesthesia type and monitoring: general GIVS and standard monitoring Results Review: All pre-operative results and documents have been reviewed as part of the pre-operative evaluation. Informed Consent: The patient's anesthetic plan and its attendant risks and benefits were discussed with the patient/family/POA. Questions were solicited and answers provided to the satisfaction of the patient/family/POA.
[2021-11-19 13:45] VITALS: BP 114/75; PULSE 93; RESP 12; O2SAT 100
--- NOTE | 2021-11-19 13:45 | SUR.PREOP ---
PATIENT UPDATED ON TIME DELAY
--- NOTE | 2021-11-19 14:46 | W.PM.PROC2 ---
Procedure Note - Detailed Date of Procedure 11/19/21 Pre-op Diagnosis excessive bleeding Post-op Diagnosis same Procedure Performed paracervical block hysteroscopy dilation & curettage Surgeon Cuauhtemoc Reyes MD Indications abnormal uterine bleeding Findings normal appearing intrauterine cavity. Normal tubal ostia bilaterally Description of Procedure Verna Perrin presents for hysteroscopy D&C for AUB. She was counseled as to the indications, risks, benefits, and alternatives to surgery, with the risks including bleeding, infection, damage to surrounding organs, VTE, and complications of anesthesia. Her verbal and written consent was obtained. PROCEDURE: The patient was taken to the OR and general anesthesia induced. She was prepped and draped in Marco stirrups with support of the back and bilateral lower extremities. I/O catheterization performed of the bladder. The above findings were noted. Infiltration with 1% lidocaine at the 3 and 9 o'clock cervical positions was performed. A single tooth tenaculum was placed on the anterior lip of the cervix. The cervix was dilated with sequential Valentina dilators. Hysteroscopy, using a normal saline medium, was performed and showed the above findings. Sharp uterine curettage was then performed and tissue placed on Telfa. The tenaculum was removed and hemostasis was observed. The patient tolerated the procedure well. Sponge, lap, and needle counts were correct. The patient had SCD's on throughout the case for VTE prophylaxis. The patient was taken to the recovery room in stable condition. Drains No Packing No Pathology yes (endometrial curettings ) Complications No immediate complications Condition stable Disposition PACU
[2021-11-19 14:54] VITALS: BP 119/74; PULSE 105; RESP 13; O2SAT 94
[2021-11-19 15:15] VITALS: BP 134/92; PULSE 88; RESP 16
[2021-11-19 15:45] VITALS: BP 131/90; PULSE 84; RESP 16
[2021-11-19] MEDS: oxyCODONE HCL (*CRX) 5 MG TAB IR PO (15:54)
[2021-11-19 16:15] VITALS: BP 122/82; PULSE 91; RESP 16
== END 2021-11-19 16:40 | disposition home or self-care (01) ==
PROVIDERS: Visit Provider Student in an Organized Health Care Education/Training Program
PROC: 0U5B8ZZ Destruction of Endometrium, Via Natural or Artificial Opening Endoscopic (ICD-10-PCS; CPT 58563; principal; 2021-11-19 13:30)
DX: N39.3 Stress incontinence (female) (male) (principal); Z90.49 Acquired absence of other specified parts of digestive tract; L68.0 Hirsutism; E28.2 Polycystic ovarian syndrome; E66.9 Obesity, unspecified; Z68.35 Body mass index [BMI] 35.0-35.9, adult
CPT/HCPCS: 58558; 88305; A9270; J1100; J2250; J2405; J2704; J3010; J7120